=== PATIENT | male | born 1995 | race Caucasian/White ===

== ENCOUNTER 2017-07-27 21:23 | Emergency (ER) | payer BC ==
[2017-07-27 21:46] VITALS: BP 156/83
[2017-07-27] MEDS ORDERED: Fluorescein Sod TOPICAL 0.6* 0.6 MG TEST OPHTHALMIC ONE ×2 (21:51→21:52)
[2017-07-27] MEDS ORDERED: BSS OPTH.SOL* BTL ONE (21:52)
[2017-07-27] MEDS ORDERED: Polymyx/Trimethoprim OPTH* 10 ML BTL RIGHT EYE ONE (21:59)
--- NOTE | 2017-07-27 21:59 | UC ---
Eye Complaint HPI - HPI Summary HPI Summary: Pt c/o right eye pain and possible FB in right eye that happened todya at ~ 13: 32 - History of Current Complaint Hx Obtained From: Patient Onset/Duration: Sudden Onset, Lasting Hours Timing: Constant Severity Initially: Mild Severity Currently: Mild Pain Intensity: 0 Character: Foreign Body Sensation Aggravating Factor(s): Blinking Alleviating Factor(s): Eye Drops Associated Signs And Symptoms: Positive: Drainage (Clear) Related History: Foreign Body - Risk Factors Globe Rupture Risk Factors: Negative Acute Glaucoma Risk Factors: Negative Optic Artery Occlusion Risk Factors: Negative <Ximena Washington NP - Last Filed: 07/27/17 22:01> <Hemant Chen - Last Filed: 07/27/17 22:10> - History of Current Complaint Chief Complaint: UCEye Stated Complaint: RIGHT EYE COMPLAINT Time Seen by Provider: 07/27/17 21:42 - Allergies/Home Medications Allergies/Adverse Reactions: Allergies Allergy/AdvReac Type Severity Reaction Status Date / Time amoxicillin [From Augmentin] Allergy Hives Verified 07/27/17 21:45 clavulanic acid Allergy Hives Verified 07/27/17 21:45 [From Augmentin] Home Medications: Home Medications NK [No Home Medications Reported] 07/27/17 [History Confirmed 07/27/17] PMH/Surg Hx/FS Hx/Imm Hx Previously Healthy: Yes - Surgical History Surgical History: Yes Surgery Procedure, Year, and Place: T&A. 3 sets of tubes - Family History Known Family History: Positive: Cardiac Disease - Social History Occupation: Employed Full-time Lives: With Family Alcohol Use: None Substance Use Type: None Smoking Status (MU): Never Smoked Tobacco Have You Smoked in the Last Year: No <Ximena Washington NP Last Filed: 07/27/17 22:01> Review of Systems Constitutional: Negative Skin: Negative Eyes: Eye Redness, Other - FB right eye ENT: Negative Respiratory: Negative Cardiovascular: Negative Gastrointestinal: Negative Genitourinary: Negative Motor: Negative Neurovascular: Negative Musculoskeletal: Negative Neurological: Negative Psychological: Negative Is Patient Immunocompromised?: No All Other Systems Reviewed And Are Negative: Yes <Ximena Washington NP Last Filed: 07/27/17 22:01> Physical Exam Triage Information Reviewed: Yes Appearance: Well-Appearing Vital Signs: Initial Vital Signs Temp 98.9 F 07/27/17 21:41 Pulse 79 07/27/17 21:41 Resp 18 07/27/17 21:41 BP 156/83 07/27/17 21:41 Pulse Ox 99 07/27/17 21:41 Vital Signs Reviewed: Yes Eyes: Positive: Conjunctiva Clear, Other: - FB flusheed out with eye stream, visualized with ful tien ENT Exam: Normal Dental Exam: Normal Neck exam: Normal Respiratory Exam: Normal Respiratory: Positive: No respiratory distress Musculoskeletal Exam: Normal Neurological Exam: Normal Psychological Exam: Normal Skin Exam: Normal <Ximena Washington NP - Last Filed: 07/27/17 22:01> Vital Signs: Initial Vital Signs Temp 98.9 F 07/27/17 21:41 Pulse 79 07/27/17 21:41 Resp 18 07/27/17 21:41 BP 156/83 07/27/17 21:41 Pulse Ox 99 07/27/17 21:41 <Hemant Chen - Last Filed: 07/27/17 22:10> Eye Complaint Course/Dx - Differential Dx/Diagnosis Differential Diagnosis/HQI/PQRI: Foreign Body Provider Diagnoses: FB right eye <Ximena Washington NP Last Filed: 07/27/17 22:01> Discharge - Sign-Out/Discharge Documenting (check all that apply): Discharge/Admit/Transfer - Billing Disposition and Condition Condition: STABLE Disposition: Home <Ximena Washington NP - Last Filed: 07/27/17 22:01> - Billing Disposition and Condition Condition: STABLE Disposition: Home <Hemant Chen - Last Filed: 07/27/17 22:10> - Discharge Plan Condition: Stable Disposition: HOME Patient Education Materials: Ear Foreign Body (ED) Referrals: Delisa Fried [Primary Care Provider] - If Needed Additional Instructions: Please follwo up with your PCP or an eye care provider as needed. Per institutional requirements, I have reviewed the chart, however, I was not consulted specifically or made aware of this patient by the above midlevel provider. I did not personally evaluate, interact with , or disposition this patient.
== END 2017-07-27 22:07 | disposition home or self-care (01) ==
LOC: UCCORT 21:23
DX: T15.91XA Foreign body on external eye, part unspecified, right eye, initial encounter (principal); S00.251A Superficial foreign body of right eyelid and periocular area, initial encounter; Z88.0 Allergy status to penicillin; Z88.8 Allergy status to other drugs, medicaments and biological substances
CPT/HCPCS: 99202; A9270-GY; G0463